=== PATIENT | female | born 1970 | race Caucasian/White ===

== ENCOUNTER → 2021-02-18 | Outpatient (CLI) | payer OTHER ==
[~2021-02-18] MED LIST: GABA600T7 PO; OMEP20CA16 PO; SPIR25TA5 PO; TOPI100C6 PO
--- NOTE | 2021-02-18 13:23 | RAD ---
INDICATION: Right upper quadrant pain COMPARISON: CT from January 08, 2021 TECHNIQUE: 5mCi of Tc99m Choletec was injected intravenously followed by scintigraphic images of the abdomen. CCK was then injected and a gallbladder ejection fraction was calculated. FINDINGS: Appropriate radiotracer clearance from the blood pool. Appropriate radiotracer excretion into the biliary tree. Prompt passage of contrast into the small bowel. Visualization of the gallbladder prior to the 60 minute time point. Gallbladder ejection fraction is 54 percent. IMPRESSION: * No scintigraphic evidence of acute cholecystitis or high grade biliary obstruction. * No evidence of biliary dyskinesia. Electronically signed by: Kendall Fontenot MD (02/18/2021 1:21 PM) [id number]
== END ==
LOC: NM 08:03
PROVIDERS: ATTEND Surgery
DX: R10.84 Generalized abdominal pain (principal)
CPT/HCPCS: 78227; A9537

== ENCOUNTER → 2021-02-20 | Day surgery (SDC) | payer OTHER ==
[~2021-02-20] VITALS: Ht 162.6 cm; Wt 52.0 kg
[~2021-02-20] MED LIST changes: +IV RINGERS,LACTATED 1000ML 1,000 ML IV SCH; +LIDOCAINE 2% PF 5 ML VIAL. ONE; +PROPOFOL 10 MG/ML (20ML) VIAL. IV ONE
[2021-02-20 11:47] VITALS: BP 122/74
[2021-02-20 13:03] VITALS: BP 118/74
--- NOTE | 2021-02-22 17:10 | PATHOLOGY ---
[facility] Accession Number: [id number] . 01 Material submitted: . stomach - ANTRAL BIOPSY R/O H. PYLORI . 01 Clinical history: . EGD, ABDOMINAL PAIN . 02 Diagnosis: Gastric biopsy, antrum: - Chronic gastritis, mild. (JPM:zain; 02/22/2021) R 02/22/2021 1040 Local . 02 Comment: Sections of the gastric antral biopsy show congestion and mild chronic inflammation. A properly controlled immunoperoxidase stain for Helicobacter is negative for Helicobacter organisms. There is no evidence of malignancy. (JPM:zain; 02/22/2021) . . Special stain performed: Immunoperoxidase stain for Helicobacter . 02 Electronically signed: . Shyam Sterling MD, Pathologist NPI- [id number] . 01 Gross description: . The specimen is received in formalin, labeled "Magdalena Massey, #1 antral BX R/O H. pylori" and consists of pink a tovar irregular tissue measuring 0.6 x 0.3 x 0.1 cm which is submitted in toto in A1. (WILTON; 02/21/2021) DKA/DKA 02/21/2021 1042 Local . 02 Pathologist provided ICD-10: K29.50 . 02 CPT . 926392, [id number] Specimen Comment: A courtesy copy of this report has been sent to [phone], [phone] Specimen Comment: [id number] Specimen Comment: Report sent to / DR ZUÑIGA Performed at: [address], [place], [place] [id number] MD Preston Sheriff MD Phone: [phone] Performed at: 02 [facility] [address] [place] [place], [place] [id number] MD Shyam Sterling MD Phone: [phone]
== END | disposition home or self-care (01) ==
LOC: ENDOS 11:10 → EDUNIT# 12:00
PROVIDERS: ATTEND Surgery
DX: R10.10 Upper abdominal pain, unspecified (principal); K29.50 Unspecified chronic gastritis without bleeding; K31.89 Other diseases of stomach and duodenum; K21.9 Gastro-esophageal reflux disease without esophagitis; I10 Essential (primary) hypertension; F41.9 Anxiety disorder, unspecified; F32.9 Major depressive disorder, single episode, unspecified; Z90.710 Acquired absence of both cervix and uterus; Z98.51 Tubal ligation status; Z98.890 Other specified postprocedural states; Z79.899 Other long term (current) drug therapy
CPT/HCPCS: 43239; J2704; 88305; 88342